=== PATIENT | male | born 1950 | race Caucasian/White ===

== ENCOUNTER → 2017-12-10 | Day surgery (SDC) | payer MEDICARE, OTHER ==
[2017-11-28 14:54] LABS: BASOPHILS # (AUTO) 0.1 (0.0-0.1); BASOPHILS % 0.8 % (0.0-1.0); EOSINOPHILS # (AUTO) 0.2 (0.0-0.4); EOSINOPHILS % 3.3 % (0.0-6.0); HEMATOCRIT 42.1 % (38.2-49.6); HEMOGLOBIN 14.5 g/dL (14.0-18.0); LYMPHOCYTES # (AUTO) 2.9 (1.0-3.2); MEAN CORPUSCULAR HEMOGLOBIN 30.3 pg (28-32); MEAN CORPUSCULAR HGB CONC 34.4 g/dL (31-35); MEAN CORPUSCULAR VOLUME 88.1 fL (81-99); MONOCYTES # (AUTO) 0.7 (0.2-0.8); NEUTROPHILS # (AUTO) 2.8 (2.1-6.9); NEUTROPHILS % 41.6 % (38.7-80.0); PLATELET COUNT 158 x10e3/uL (140-360); RED BLOOD COUNT 4.78 x10e6/uL (4.3-5.7); RED CELL DISTRIBUTION WIDTH 12.7 % (11.7-14.4)
[~2017-12-10] MED LIST: ASPIR 8181 MG PO; CELEBREX100 MG PO; CENTRUM SILVER1 EAC3 PO; DESONATE TOP; DIOVAN160 MG PO; FENTANYL CITRATE/PF 100MCG/2 ML INJ ONE; FISH OIL 1,0001 EAC2 PO; FLOMAX0.4 MG PO; GLYBURIDE5 MG PO; METOPROLOL TART25 MG PO; MIDAZOLAM HCL 2 MG/2 ML VIAL ONE; OMEPRAZOLE40 MG PO; PROPOFOL IV EMULSION 10 MG/ML 20 ML VIAL ONE; SUCRALFATE1 GM PO; TOPICORT TOP; TRIAMCINOLONE A15 G4 TP; VITAMIN C500 MG PEG
--- OUTSIDE RECORDS SUMMARY | 2017-12-10 08:33 | XMS REPORT | Clinical Summary ---
Author Author [facility] Organization [facility] Address Unknown Phone Unavailable Care Team Providers Care [employer] Manager Name Role Phone Mikel Philippe DO PCP Allergies Active Allergy Reactions Severity Noted Date Comments Hydrocodone Swelling 11/06/2017 Current Medications Prescription Sig. Disp. Refills Start End Date Status Date valsartan (DIOVAN) 80 MG Take 80 mg by mouth Active tablet daily. metoprolol tartrate Take 50 mg by mouth 2 Active (LOPRESSOR) 50 mg tablet (two) times a day. celecoxib (CeleBREX) 100 Take 100 mg by mouth 2 Active MG capsule (two) times a day. glyBURIDE (DIABETA) 5 MG Take 5 mg by mouth daily Active tablet with breakfast. Active Problems Not on file Encounters Date Type Specialty Care Team Description 11/06/2017 Emergency Emergency Medicine ReichlBoom MD Chest pain, unspecified - type (Primary Dx) 11/07/2017 after 12/09/2016 Social History Tobacco Use Types Packs/Day Years Used Date Never Smoker Smokeless Tobacco: Never Used Alcohol Use Drinks/Week oz/Week Comments Yes Sex Assigned at Date Recorded Not on file Last Filed Vital Signs Vital Sign Reading Time Taken Blood Pressure 187/105 11/07/2017 1:38 AM [facility] Pulse 62 11/07/2017 1:38 AM [facility] Temperature 36.7 C (98 F) 11/06/2017 11:10 PM [facility] Respiratory Rate 17 11/07/2017 1:38 AM [facility] Oxygen Saturation 97% 11/07/2017 1:38 AM [facility] Inhaled Oxygen - - Concentration Weight - - Height 180.3 cm (5' 11") 11/06/2017 11:09 PM [facility] Body Mass Index - - Plan of Treatment Health Maintenance Due Date Last Done Comments COLONOSCOPY 2001 ZOSTER VACCINE 2011 PNEUMOCOCCAL 2016 POLYSACCHARIDE VACCINE AGE 65 AND OVER PNEUMOCOCCAL-13 2016 INFLUENZA VACCINE 05/28/2017 Results * Estimated GFR (11/07/2017 12:13 AM) Component Value Ref Range GFR Non Af Amer 75 mL/min/1.73 m2 GFR Af Amer >90 mL/min/1.73 m2 Comment: Chronic kidney disease: <60 mL/min/1.73m2 Kidney failure: <15 mL/min/1.73m2 The estimated GFR is calculated from the IDMS-traceable Modification of Diet in Renal Disease Equation. The accuracy of the calculation is poor when the creatinine is normal. Calculated values >90 mL/min/1.73m2 are not reported. This equation has not been validated in children (<18 years), women, the elderly (>70 years), or ethnic groups other than Caucasians and Americans. Specimen Performing Laboratory Plasma specimen [facility] DEPARTMENT OF PATHOLOGY AND GENOMIC MEDICINE [address] [place] [address] * Troponin (11/07/2017 12:13 AM) Component Value Ref Range Troponin <0.01 0.00 - 0.60 ng/mL Comment: 0.11 - 1.49 ng/ml May indicate increased risk of acute coronary syndrome. >=1.5 ng/ml Consistent with acute myocardial infarction. The diagnostic value of a single normal or non-diagnostic result is questionable. Serial samples at 2-6 hour intervals are required to rule out acute myocardial injury. Specimen Performing Laboratory Plasma specimen [facility] DEPARTMENT OF PATHOLOGY AND GENOMIC MEDICINE [facility] [place] [address] [place] [address] * CBC with platelet and differential (11/07/2017 12:13 AM) Component Value Ref Range WBC 7.4 4.2 - 11.0 k/uL RBC 4.69 4.04 - 5.86 m/uL HGB 14.0 13.0 - 17.3 g/dL HCT 39.2 34.0 - 45.0 % MCV 83.6 80.0 - 98.0 fL MCH 29.9 27.0 - 34.0 pg MCHC 35.7 31.5 - 36.5 g/dL RDW - SD 36.4 (L) 37.0 - 51.0 fL MPV 9.5 7.4 - 10.4 fL Platelet count 161 150 - 400 k/uL Nucleated RBC 0.00 /100 WBC Neutrophils 41.1 36.0 - 66.0 % Lymphocytes 44.2 (H) 24.0 - 44.0 % Monocytes 11.3 (H) 0.0 - 6.0 % Eosinophils 2.0 0.0 - 6.0 % Basophils 0.7 0.0 - 1.2 % Immature granulocytes 0.7 0.0 - 1.0 % Specimen Performing Laboratory Blood [facility] DEPARTMENT OF PATHOLOGY AND GENOMIC MEDICINE [address] [place] [address] * B natriuretic peptide (11/07/2017 12:13 AM) Component Value Ref Range BNP 28 0 - 100 pg/mL Specimen Performing Laboratory Blood [facility] DEPARTMENT OF PATHOLOGY AND GENOMIC MEDICINE [address] [place] [address] * Comprehensive metabolic panel (11/07/2017 12:13 AM) Component Value Ref Range Sodium 142 135 - 150 mEq/L Potassium 3.7 3.5 - 5.0 mEq/L Chloride 108 100 - 109 mEq/L CO2 25 24 - 32 mmol/L Anion gap 9 7 - 15 mEq/L Comment: Starting from January , anion gap calculation no longer incorporates potassium. Please note the change. BUN 19 (H) 7 - 18 mg/dL Creatinine 1.0 0.8 - 1.5 mg/dL Glucose 136 (H) 65 - 100 mg/dL Calcium 9.0 8.6 - 10.7 mg/dL Protein 7.4 6.3 - 8.2 g/dL Albumin 3.8 3.2 - 5.0 g/dL A/G ratio 1.1 0.7 - 3.8 Alkaline phosphatase 55 30 - 120 U/L AST 34 15 - 37 U/L ALT 79 (H) 30 - 65 U/L Total bilirubin 0.6 0.2 - 1.2 mg/dL Specimen Performing Laboratory Plasma specimen [facility] DEPARTMENT OF PATHOLOGY AND GENOMIC MEDICINE [address] [place] [address] * XR Chest 1 Vw Portable (11/06/2017 11:55 PM) Specimen Performing Laboratory [facility] [address] [place] [address] Narrative EXAMINATION: XR CHEST 1 VW PORTABLE CLINICAL HISTORY: SHORTNESS OF BREATH COMPARISON:None. IMPRESSION: The lungs are clear. No pleural effusion or pneumothorax. The cardiomediastinal silhouette is normal. Thoracic aorta with atherosclerotic calcifications and tortuosity. Degenerative spine changes. No acute osseous abnormalities. [facility]-[id number] Procedure Note [facility], Radiology Results Incoming - 11/07/2017 12:01 AM CORPORATE SPECIALIST EXAMINATION: XR CHEST 1 VW PORTABLE CLINICAL HISTORY: SHORTNESS OF BREATH COMPARISON: None. IMPRESSION: The lungs are clear. No pleural effusion or pneumothorax. The cardiomediastinal silhouette is normal. Thoracic aorta with atherosclerotic calcifications and tortuosity. Degenerative spine changes. No acute osseous abnormalities. [facility]-[id number] * ECG 12 lead (11/06/2017 11:05 PM) Component Value Ref Range Ventricular rate 64 Atrial rate 64 CA interval 166 QRSD interval 90 QT interval 390 QTC interval 402 P axis 1 70 QRS axis 1 14 T wave axis 54 EKG impression Normal sinus rhythm-Normal ECG-No previous ECGs available- Specimen Performing Laboratory [facility] [address] [address] [place] [address] after 12/09/2016 Insurance Payer Benefit Subscriber ID Type Phone Address Plan / Group MEDICARE MEDICARE xxxxxxxxxx Medicare [place], [place] PART A AND B CIGNA CIGNA OPEN xxxxxxxxxxx [place] [address]
== END | disposition home or self-care (01) ==
LOC: OR 08:31
PROVIDERS: ATTEND Internal Medicine Gastroenterology
DX: K21.9 Gastro-esophageal reflux disease without esophagitis (principal); K31.7 Polyp of stomach and duodenum; K29.70 Gastritis, unspecified, without bleeding; I48.91 Unspecified atrial fibrillation; I10 Essential (primary) hypertension; E78.5 Hyperlipidemia, unspecified; E11.9 Type 2 diabetes mellitus without complications; N20.0 Calculus of kidney; F32.9 Major depressive disorder, single episode, unspecified; F41.9 Anxiety disorder, unspecified; Z01.810 Encounter for preprocedural cardiovascular examination; Z01.812 Encounter for preprocedural laboratory examination; Z79.82 Long term (current) use of aspirin; Z86.19 Personal history of other infectious and parasitic diseases; Z87.01 Personal history of pneumonia (recurrent)
CPT/HCPCS: 36415 ×2; 43239; 82948; 85025; 88305; 88312; 93005; J2250